=== PATIENT | female | born 1985 | race Caucasian/White ===

== ENCOUNTER 2017-03-26 07:55 | Outpatient (CLI) | payer OTHER ==
[~2017-03-26] VITALS: Ht 157.5 cm; Wt 71.9 kg
[~2017-03-26 07:55] MED LIST: PREN1TAB49 PO
[2017-03-26 08:07] VITALS: Ht 157.5 cm; Wt 71.9 kg
[2017-03-26 08:08] VITALS: BP 102/63; PULSE 70
[2017-03-26] MEDS ORDERED: TERBUTALINE 1 ML ONE (08:56)
[2017-03-26] MEDS: LACTATED RINGER'S 1,000 ML IV SCH ×2 (09:00→10:39)
[2017-03-26] MEDS ORDERED: LACTATED RINGER'S 500 ML IV ONE (09:00)
[2017-03-26] MEDS ORDERED: TERBUTALINE 1 MG/ML INJ SC ONE ×2 (09:00→09:30)
--- NOTE | 2017-03-26 09:14 | HP ---
Date/Time of Note Date/Time of Note DATE: 03/26/17 TIME: 09:10 OB - History Hx of Present Free Text/Dictation 31 year-old G3, P2 with history of 2 previous C-Sections Chief Complaint: Contractions Estimated Due Date: Apr 25, 2017 : 3 Para: 2 Care: Good Care Ultrasounds: Normal mid trimester US Obstetrical Complications: None Medical Complications: None (Came in with irregular but painful contractions since early this morning.Denies leakage of fluid or bleeding per vagina.Denies sexual intercourse.) Past Family/Social History * Past Medical, Surgical, Family and Obstetric Histories reviewed from chart. OB Admission Exam Vital Signs Vital Signs Vital Signs Date Time Temp Pulse Resp B/P Pulse Ox O2 Delivery O2 Flow Rate FiO2 03/26/17 08:08 97.8 70 102/63 JANEY KILGORE MD Mar 26, 2017 09:14
[2017-03-26 09:26] LABS: ADD UMIC NO; UR ASCORBIC ACID NEGATIVE (NEGATIVE); UR BILIRUBIN (Dip) NEGATIVE (NEGATIVE); UR BLOOD (Dip) NEGATIVE (NEGATIVE); UR CLARITY CLEAR (CLEAR); UR COLOR YELLOW (YELLOW); UR GLUCOSE (Dip) NEGATIVE (NEGATIVE); UR KETONES (Dip) NEGATIVE (NEGATIVE); UR LEUKOCYTE ESTERASE (Dip) NEGATIVE Leu/ul (NEGATIVE); UR NITRITE (Dip) NEGATIVE (NEGATIVE); UR SPECIFIC GRAVITY (Dip) 1.019 (1.003-1.030); UR TOTAL PROTEIN (Dip) NEGATIVE (NEGATIVE); UR UROBILINOGEN (Dip) NEGATIVE (NEGATIVE)
--- NOTE | 2017-03-26 14:18 | TRIAGE ---
OB Triage Datetime Report Generated by CPN: 03/26/2017 14:18 Datetime: 03/26/2017 12:17 Stage of : OB Triage Datetime: 03/26/2017 11:59 Labor Evaluation Frequency: 0 Monitor Mode: External Resting Tone [place]: Relaxed Heart Rate FHR Baseline Rate: 145 Monitor Mode: External US Variability: Moderate 6-25 bpm Accelerations: 10X10 Decelerations: None Category: Category I Pain Assessment Pain Scale: 0 Pain Presence: None/Denies Pain Type: N/A Pain Goal: 3 Pain Relief Measures: Comfort Measures Datetime: 03/26/2017 10:59 Labor Evaluation Frequency: X1 Monitor Mode: External Duration (sec)2399: 50 Quality: Mild Resting Tone [place]: Relaxed Heart Rate FHR Baseline Rate: 145 Monitor Mode: External US Variability: Moderate 6-25 bpm Accelerations: 10X10 Decelerations: None Category: Category I Pain Assessment Pain Scale: 4 Pain Presence: Intermittent Pain Type: Cramping Pain Location: Abdomen Pain Goal: 3 Pain Relief Measures: Comfort Measures Datetime: 03/26/2017 09:59 Labor Evaluation Frequency: 0 Monitor Mode: External Resting Tone [place]: Relaxed Heart Rate FHR Baseline Rate: 135 Monitor Mode: External US Variability: Moderate 6-25 bpm Accelerations: 10X10 Decelerations: None Category: Category I Pain Assessment Pain Scale: 0 Pain Presence: None/Denies Pain Type: N/A Pain Goal: 3 Pain Relief Measures: Comfort Measures Datetime: 03/26/2017 09:02 Stage of : OB Triage Datetime: 03/26/2017 08:58 Labor Evaluation Frequency: 5-6 Monitor Mode: External Duration (sec)2399: 50-60 Pattern: Normal: <= 5 Contractions in 10 Minutes Resting Tone [place]: Relaxed Heart Rate FHR Baseline Rate: 135 Monitor Mode: External US Variability: Moderate 6-25 bpm Accelerations: 10X10 Decelerations: None Category: Category I Pain Assessment Pain Scale: 5 Pain Presence: Intermittent Pain Type: Cramping Pain Location: Abdomen Pain Goal: 3 Pain Relief Measures: Comfort Measures Datetime: 03/26/2017 08:34 Stage of : OB Triage Datetime: 03/26/2017 08:04 Vaginal Exam Dilatation (cms): 0.0 Station: -2 Exam By: S ROSANNE Vaginal Bleeding: None Cervix, Consistency: Soft Cervix, Position: Posterior Presentation 'A': Cephalic Datetime: 03/26/2017 08:00 Stage of : OB Triage Assessment Type: Triage EGA: 35.5 Maternal Assessment Level of Consciousness: Fully Conscious DTR's/Clonus: DTRs 2+; No Clonus Headache: Denies Blurred Vision: No Respiratory Effort: Unlabored; Regular Rhythm; Equal Expansion Breath Sounds, Left: Clear and Equal Breath Sounds, Right: Clear and Equal Nausea/Vomiting: Denies RUQ Epigastric Pain: Denies Facial Edema: None Temperature Route: Axillary Fall Risk Assessment History of Falling: (0) No Secondary Diagnosis: (0) No Ambulatory Aid: (0) Bedrest/Nurse Assist IV Therapy: (0) No Gait: (0) Normal/Bedrest/Immobile Mental Status: (0) Oriented to Own Ability Fall Score: 0 Fall Risk Score Definition: No Risk: No action required Labor Evaluation Frequency: X1 Monitor Mode: External Duration (sec)2399: 30 Quality: Mild Resting Tone [place]: Relaxed Heart Rate FHR Baseline Rate: 145 Monitor Mode: External US Variability: Moderate 6-25 bpm Decelerations: None Category: Category II Pain Assessment Pain Scale: 6 Pain Presence: Intermittent Pain Type: Cramping; Contraction Pain Location: Abdomen Pain Goal: 3 Pain Relief Measures: Comfort Measures Datetime: 03/26/2017 07:59 Time of Arrival: 03/26/2017 07:50 Arrived By: Ambulatory Arrived From: Home Chief Complaint: C/O UC'S Q 5-10 MIN THAT STARTED AT APPROX 0450 THIS AM. DENIES BLEEDING OR LEAKI NG OF FLUID Movement: Present Contractions: Regular Contractions: 5-10 Rupture of Membranes: Denies Vaginal Bleeding: None Vaginal Discharge: Denies Recent Sexual Intercouse: Denies Abdominal Trauma: Not Applicable Patient Complaints: Contractions; Cramping Time Provider Notified: 03/26/2017 08:34 Provider Notified: JAME Initial Plan: MONITOR, VE, IV HYDRATION, TERBUTALINE
[2017-03-27] MEDS ORDERED: FER325 PO (04:39)
== END 2017-03-26 12:40 | disposition home or self-care (01) ==
LOC: L-D 07:55 → OBT 07:55
PROVIDERS: ATTEND Specialist
DX: O62.9 Abnormality of forces of labor, unspecified (principal); Z3A.35 35 weeks gestation of pregnancy
CPT/HCPCS: 36415; 81003; 96360; 96361; 96372; J3105; J7120; Z7500; G0463

== ENCOUNTER 2017-03-27 04:24 | Outpatient (CLI) | payer OTHER ==
[~2017-03-27] VITALS: Ht 157.5 cm; Wt 72.7 kg
[2017-03-27] MEDS ORDERED: FER325 PO (04:39)
[2017-03-27 04:40] VITALS: BP 111/61; PULSE 71; RESP 18; Ht 157.5 cm; Wt 72.7 kg
[2017-03-27] MEDS ORDERED: TERBUTALINE 1 MG/ML INJ SC STA (05:01)
[2017-03-27] MEDS ORDERED: LACTATED RINGER'S 1,000 ML IV SCH (05:30)
[2017-03-27] MEDS ORDERED: LACTATED RINGER'S 1,000 ML IV ONE (05:30)
--- NOTE | 2017-03-27 08:10 | HP ---
Date/Time of Note Date/Time of Note DATE: 03/27/17 TIME: 08:07 OB - History Hx of Present Chief Complaint: Contractions. Estimated Due Date: Apr 25, 2017 : 3 Para: 2 Care: Good Care Ultrasounds: Normal mid trimester US Obstetrical Complications: None Medical Complications: None Other Concerns: Preeevious X 2. Past Family/Social History * Past Medical, Surgical, Family and Obstetric Histories reviewed from chart. OB Admission Exam Vital Signs Vital Signs Vital Signs Date Time Temp Pulse Resp B/P Pulse Ox O2 Delivery O2 Flow Rate FiO2 03/27/17 04:40 97.9 71 18 111/61 Room Air JANEY KILGORE MD Mar 27, 2017 08:10
--- NOTE | 2017-03-27 08:10 | TRIAGE ---
OB Triage Datetime Report Generated by CPN: 03/27/2017 08:10 Datetime: 03/27/2017 08:00 Stage of : OB Triage Level of Consciousness: Fully Conscious Frequency: 2UC/HR Monitor Mode: External Duration (sec)2399: 80-110 Quality: Mild Pattern: Normal: <= 5 Contractions in 10 Minutes Resting Tone [place]: Relaxed FHR Baseline Rate: 135 Monitor Mode: External US Variability: Moderate 6-25 bpm Accelerations: 15X15 Decelerations: None Category: Category I Pain Scale: 3 Pain Presence: Intermittent Pain Type: Cramping Pain Location: Abdomen Pain Goal: 3 Pain Relief Measures: Comfort Measures Membrane Status: Intact Vaginal Bleeding: None Datetime: 03/27/2017 07:00 Stage of : OB Triage Frequency: Irregular Monitor Mode: External Duration (sec)2399: 50-180 Quality: Mild Pattern: Normal: <= 5 Contractions in 10 Minutes Resting Tone [place]: Relaxed FHR Baseline Rate: 135 Monitor Mode: External US Variability: Moderate 6-25 bpm Accelerations: 15X15 Decelerations: None Category: Category I Datetime: 03/27/2017 06:06 Membrane Status: Intact Datetime: 03/27/2017 06:00 Stage of : OB Triage Frequency: Irregular Monitor Mode: External Duration (sec)2399: 40-120 Quality: Mild Pattern: Normal: <= 5 Contractions in 10 Minutes Resting Tone [place]: Relaxed FHR Baseline Rate: 130 Monitor Mode: External US FHR Baseline Changes: No Baseline Change Variability: Moderate 6-25 bpm Accelerations: 15X15 Decelerations: None Category: Category I Datetime: 03/27/2017 05:00 Stage of : OB Triage Frequency: x2 Monitor Mode: External Duration (sec)2399: 50-90 Quality: Mild Pattern: Normal: <= 5 Contractions in 10 Minutes Resting Tone [place]: Relaxed FHR Baseline Rate: 130 Monitor Mode: External US Variability: Moderate 6-25 bpm Accelerations: 15X15 Decelerations: None Category: Category I Datetime: 03/27/2017 04:54 Stage of : OB Triage Datetime: 03/27/2017 04:34 Stage of : OB Triage Assessment Type: Triage Level of Consciousness: Fully Conscious DTR's/Clonus: DTRs 2+; No Clonus Headache: Denies Blurred Vision: No Respiratory Effort: Unlabored; Regular Rhythm; Equal Expansion Breath Sounds, Left: Clear and Equal Breath Sounds, Right: Clear and Equal Nausea/Vomiting: Denies RUQ Epigastric Pain: Denies Lower Extremities Edema: None Degree: None Upper Extremities Edema: None Degree: None Facial Edema: None Temperature Route: Oral History of Falling: (0) No Secondary Diagnosis: (0) No Ambulatory Aid: (0) Bedrest/Nurse Assist IV Therapy: (0) No Gait: (0) Normal/Bedrest/Immobile Mental Status: (0) Oriented to Own Ability Fall Score: 0 Fall Risk Score Definition: No Risk: No action required Pain Scale: 3 Pain Presence: Intermittent Pain Type: Cramping; Contraction Pain Location: Abdomen; Back Pain Relief Measures: Comfort Measures Datetime: 03/27/2017 04:32 Time of Arrival: 03/27/2017 04:24 EGA: 35.6 Arrived By: Wheelchair Arrived From: Home Chief Complaint: UCs [id number] Movement: Present Contractions: Irregular Time Contractions Began: 03/27/2017 02:00 Contractions: [id number] Rupture of Membranes: Denies Vaginal Bleeding: None Vaginal Discharge: Present Abdominal Trauma: Not Applicable Patient Complaints: Contractions; Cramping; Back Pain Time Provider Notified: 03/27/2017 04:54 Provider Notified: Initial Plan: LUIS FELIPE x2
[2017-03-27 09:32] LABS: ADD UMIC NO; UR ASCORBIC ACID NEGATIVE (NEGATIVE); UR BILIRUBIN (Dip) NEGATIVE (NEGATIVE); UR BLOOD (Dip) NEGATIVE (NEGATIVE); UR CLARITY CLEAR (CLEAR); UR COLOR YELLOW (YELLOW); UR GLUCOSE (Dip) NEGATIVE (NEGATIVE); UR KETONES (Dip) NEGATIVE (NEGATIVE); UR LEUKOCYTE ESTERASE (Dip) NEGATIVE Leu/ul (NEGATIVE); UR NITRITE (Dip) NEGATIVE (NEGATIVE); UR SPECIFIC GRAVITY (Dip) 1.016 (1.003-1.030); UR TOTAL PROTEIN (Dip) NEGATIVE (NEGATIVE); UR UROBILINOGEN (Dip) NEGATIVE (NEGATIVE)
== END 2017-03-27 08:15 | disposition home or self-care (01) ==
LOC: L-D 04:24 → OBT 04:24
PROVIDERS: ATTEND Specialist
DX: O62.9 Abnormality of forces of labor, unspecified (principal); O34.219 Maternal care for unspecified type scar from previous cesarean delivery; Z3A.35 35 weeks gestation of pregnancy
CPT/HCPCS: 36415; 81003; 87086; 96360; 96361; 96372; J3105; J7120; Z7500; G0463

== ENCOUNTER 2017-03-28 12:46 | Inpatient (IN) | payer OTHER ==
[~2017-03-28] VITALS: Ht 157.5 cm; Wt 72.7 kg
[~2017-03-28 12:46] MED LIST changes: +EPHEDrine SULFATE 50 MG/5 ML SYG ONE; +FER325 PO
--- NOTE | 2017-03-28 13:58 | TRIAGE ---
OB Triage Datetime Report Generated by CPN: 03/28/2017 13:57 Datetime: 03/28/2017 13:56 Assessment Type: Triage Level of Consciousness: Fully Conscious DTR's/Clonus: DTRs 2+; No Clonus Headache: Denies Blurred Vision: No Respiratory Effort: Unlabored; Regular Rhythm; Equal Expansion Breath Sounds, Left: Clear and Equal Breath Sounds, Right: Clear and Equal Nausea/Vomiting: Denies RUQ Epigastric Pain: Denies Lower Extremities Edema: None Degree: None Upper Extremities Edema: None Degree: None Facial Edema: None History of Falling: (0) No Secondary Diagnosis: (0) No Ambulatory Aid: (0) Bedrest/Nurse Assist IV Therapy: (0) No Gait: (0) Normal/Bedrest/Immobile Mental Status: (0) Oriented to Own Ability Fall Score: 0 Fall Risk Score Definition: No Risk: No action required Datetime: 03/28/2017 13:55 Time of Arrival: 03/28/2017 12:31 EGA: 36.0 Chief Complaint: PT SENT FROM CLINIC FOR NO FHT'S Movement: Present Contractions: Denies/Absent Rupture of Membranes: Denies Vaginal Bleeding: None Vaginal Discharge: Denies Recent Sexual Intercouse: Denies Abdominal Trauma: Not Applicable Patient Complaints: None Time Provider Notified: 03/28/2017 13:00 Provider Notified: JAME Initial Plan: EFM/PROMISE
[2017-03-28 14:36] VITALS: Ht 157.5 cm; Wt 72.7 kg
[2017-03-28 14:38] VITALS: BP 127/72; PULSE 68; RESP 18
--- NOTE | 2017-03-28 15:21 | RADRPT ---
PROCEDURE: US evaluation of amniotic fluid volume. CLINICAL INDICATION: No heart tones. TECHNIQUE: Multiple sonographic images of the gravid uterus were obtained utilizing alejandro-scale hernandez ging. Sagittal and transverse images were obtained. The images were reviewed on a PACS workstation . PROMISE was measured. COMPARISON: No prior studies are available for comparison. FINDINGS: There is a single intrauterine . There is no heart motion. This indicates demise. Position is cephalic. Placenta is posterior grade II with no abruption or previa. PROMISE is 8.7 cm. (Normal = 5-20 cm.) IMPRESSION: 1. PROMISE is 8.7 cm. 2. demise with no heart motion visualized. RPTAT: QQ .Keshawn Ballesteros MD, Date Time Electronically viewed and signed by .Keshawn Ballesteros MD, on 03/28/2017 15:21 .R/
[2017-03-28 15:29] LABS: BASOPHIL # 0.1 10^3/ul (0.0-0.1); BASOPHILS % 0.4 % (0.0-2.0); EOSINOPHILS # 0.1 10^3/ul (0.0-0.5); EOSINOPHILS % 0.5 % (0.0-7.0); HEMATOCRIT 35.1 % (37.0-47.0); HEMOGLOBIN 11.4 g/dl (12.0-16.0); LYMPHOCYTES # 2.3 10^3/ul (0.8-2.9); LYMPHOCYTES % 14.2 % (15.0-51.0); MEAN CORPUSCULAR HGB CONC 32.5 g/dl (32.0-37.0); MEAN CORPUSCULAR VOLUME 86.2 fl (82.0-101.0); MEAN PLATELET VOLUME 11.9 fl (7.4-10.4); MONOCYTE # 1.2 10^3/ul (0.3-0.9); MONOCYTES % 7.2 % (0.0-11.0); NEUTROPHIL # 12.2 10^3/ul (1.6-7.5); NEUTROPHILS % 76.6 % (39.0-77.0); PLATELET COUNT 272 10^3/UL (140-415); RED BLOOD COUNT 4.07 10^6/ul (4.20-5.40); RED CELL DISTRIBUTION WIDTH 14.3 % (11.5-14.5); WHITE BLOOD COUNT 15.9 10^3/ul (4.8-10.8)
[2017-03-28] MEDS ORDERED: OXYTOCIN 30 UNITS/LR 500 ML IV PRN (15:30)
[2017-03-28] MEDS ORDERED: CARBOPROST 250 MCG INJ IM PRN (15:30)
[2017-03-28] MEDS ORDERED: METHYLERGONOVINE 0.2 MG INJ IM PRN (15:30)
[2017-03-28] MEDS ORDERED: MISOPROSTOL 200 MCG TAB PR PRN (15:30)
[2017-03-28] MEDS ORDERED: OXYTOCIN 30 UNITS/LR 500 ML IV SCH ×2 (15:30→16:00)
[2017-03-28] MEDS ORDERED: CEFAZOLIN 2 GM/50 ML (PMX) 50 ML IV SCH (15:30)
[2017-03-28] MEDS: LACTATED RINGER'S 1,000 ML IV SCH ×4 (15:37→23:40)
[2017-03-28 15:42] LABS: INR 0.91; PROTIME 12.3 Sec (12.2-14.2)
[2017-03-28 15:43] LABS: PARTIAL THROMBOPLASTIN TIME 27.9 Sec (25.0-35.0)
[2017-03-28] MEDS ORDERED: ONDANSETRON 4 MG INJ IV STA (16:16)
[2017-03-28] MEDS ORDERED: CITRIC ACID/NA CITRATE 30 ML CUP PO ONE (16:30)
[2017-03-28] MEDS ORDERED: PHENYLephrine (100 MCG/ML) 5ML SYG ONE (17:28)
[2017-03-28] MEDS ORDERED: METOCLOPRAMIDE 10 MG INJ ONE (17:28)
[2017-03-28] MEDS ORDERED: morphine SULFATE/PF (10 MG/10 ML) INJ ONE (17:28)
[2017-03-28] MEDS ORDERED: OXYTOCIN 10 UNIT INJ ONE (17:28)
[2017-03-28] MEDS ORDERED: FENTAnyl 50 MCG/ML VIAL ONE (17:28)
[2017-03-28] MEDS ORDERED: MIDAZOLAM 1 MG/ML 2 ML INJ ONE (17:29)
[2017-03-28] MEDS ORDERED: morphine 2 MG INJ IV PRN (18:00)
[2017-03-28] MEDS ORDERED: LABETALOL HCL 20MG INJ IV PRN (18:00)
[2017-03-28] MEDS ORDERED: morphine 4 MG/ML VIAL IV PRN (18:00)
[2017-03-28] MEDS ORDERED: DIPHENHYDRAMINE 50 MG INJ IV PRN ×2 (18:00)
[2017-03-28] MEDS ORDERED: NALBUPHINE HCL (10 MG/1 ML) INJ IV PRN (18:00)
[2017-03-28] MEDS ORDERED: hydrALAzine 20 MG INJ IV PRN (18:00)
[2017-03-28] MEDS ORDERED: ONDANSETRON 4 MG INJ IV PRN ×2 (18:00)
[2017-03-28] MEDS ORDERED: TRIMETHOBENZAMIDE 100 MG/ML VIAL IM PRN ×2 (18:00)
[2017-03-28] MEDS ORDERED: OXYCODONE/ACETAMINOPHEN (5/325) TAB PO PRN ×2 (18:00)
[2017-03-28] MEDS ORDERED: MEPERIDINE 25 MG INJ IV PRN (18:00)
[2017-03-28] MEDS ORDERED: EPHEDrine SULFATE 50 MG/5 ML SYG IV PRN (18:00)
[2017-03-28] MEDS ORDERED: ZOLPIDEM 5 MG TAB PO PRN (18:00)
[2017-03-28] MEDS ORDERED: ALBUTEROL 0.083% (NEB) 2.5 MG/3 ML AMP HHN PRN (18:00)
[2017-03-28] MEDS ORDERED: FENTAnyl 50 MCG/ML VIAL IV PRN ×3 (18:00)
[2017-03-28] MEDS ORDERED: IPRATROPIUM (NEB) 0.5 MG/2.5 ML AMP HHN PRN (18:00)
[2017-03-28] MEDS ORDERED: NALOXONE (0.4 MG/ML) INJ IV PRN (18:00)
[2017-03-28] MEDS ORDERED: HYDROmorphONE (0.2 MG/ML) 10ML SYG IV PRN ×3 (18:00)
--- NOTE | 2017-03-28 19:28 | HP ---
Date/Time of Note Date/Time of Note DATE: 03/28/17 TIME: 19:07 OB - History Hx of Present Free Text/Dictation 31 y.o who had x2 previous section was sent from clinic not able to detect FHT Rad report revealed no FHT PROMISE 8.7 cephalic presentarion with post placenta Gr 1-II. repeat section was prepared as soon as possible which is requested by patient. Her OB is not available soon enough to meet the patient request, so I was requested to perform the procedure in place of Dr Sebastian Patient gave me the consent to perform the procedure. Chief Complaint: no FHT Estimated Due Date: Apr 25, 2017 : 3 Para: 2 Spontaneous : 0 Therapeutic : 0 Care: Good Care Ultrasounds: Normal mid trimester US Obstetrical Complications: None Medical Complications: None Past Family/Social History * Past Medical, Surgical, Family and Obstetric Histories reviewed from chart. Blood Type: O+ Rubella: immune RPR/VDRL: Negative GBS Status: Unknown HBsAG: Positive OB Admission Exam Vital Signs Vital Signs Vital Signs Date Time Temp Pulse Resp B/P Pulse Ox O2 Delivery O2 Flow Rate FiO2 03/28/17 14:38 98.5 68 18 127/72 Room Air Physical Exam HEENT: WNL Heart: Rhythm Normal Lungs: Clear, Equal Abdomen: WNL Extremities: Normal Reflexes: Normal Cervical Dilatation: other Effacement: Other Station: Other Membranes: Intact Amniotic Fluid: Other Last 72 hours Lab Results CBC & BMP 03/28/17 14:50 OB Assessment/Plan Other Assessment: IUP 36w demise X2 previous section Plan: Section FLORENCIO BARROS MD Mar 28, 2017 19:24
--- NOTE | 2017-03-28 19:54 | OPR ---
Operative Report Planned Procedure Free Text/Dictation demise at 36w with x2 previous section Procedure date Mar 28, 2017 Procedure(s) repeat low transverse section Performed by see signature line Assisting provider: IZABELA LOVELL MD Anesthesiologist: Willy Nelson M.D. Pre-procedure diagnosis IUP 36W , DEMISE X2 PREVIOUS SECTION Anesthesia Type: spinal Procedure Description Under satisfactory [spinal ] anesthesia, the patient was prepped and draped and placed in a supine position, tilted to the left. Pfannenstiel incision was made, carried through the subcutaneous tissue. Bleeders brought under control with electrocautery. Fascia incised to the length of the incision. Rectus muscles from the fascia, divided midline. Peritoneum exposed, entered through a transverse incision. Exploration of abdomen revealed gravid uterus. Transverse incision was made in the lower segment of the uterus. Amniotic sac ruptured. []light meconium stained amniotic fluid noted fetus was delivered from DEREJE The baby was handed to the nurse. It was noticed that there is tight true not one time near the placenta base. The placenta was delivered manually intact. Uterine cavity was cleaned with wet sponge and drainage established. Uterus closed in 2 layers using [#1.0 ch gut] in continuous fashion. Peritoneal cavity irrigated with warm saline. Sponge, needle and instrument count reported to be correct. Abdominal peritoneum closed with 0ch gut[] continuously. Rectus muscle approximated with []0ch gut. Fascia closed with []#1 vicryl in 2 segment . subcut was irrigated with water and this layer approximated with 00 plain gut , and skin closed with 000 monocryl in subcuticular manner.pressure dressing applied. Estimated blood loss [600 ] mL. Urine bag contained 200]mL of urine patient was sent to [facility] in stable condition. Post-Procedure Post-procedure diagnosis DELIVERED FETUS Findings: Baby [], Apgars [0] and [0], weight [5LB 3OZ ], position DEREJE[], [] presentation vertex]cord. true knot Estimated blood loss: other (600) Specimen(s): yes (see below) Specimen(s) description placenta Grafts/Implants: no Complication(s): no Pt Condition post procedure: stable Post-procedure comments true knot Physician Certification I, the undersigned physician, hereby certify that I have discussed the procedure described in this consent form with this patient (or the patient's legal treasury representative), including: * The risk and benefits of the procedure; * Any adverse reactions that may reasonably be expected to occur; * Any alternative efficacious methods of treatment which may be medically viable ; * The potential problems that may occur during recuperation; * Potential for blood transfusion and associated risks/benefits; and * Any research or economic interest I may have regarding this treatment. I further certify that the patient/legally responsible person was encouraged to ask question and that all questions were answered. FLORENCIO BARROS MD Mar 28, 2017 19:54
[2017-03-28] MEDS: KETOROLAC 30 MG INJ IV PRN (20:39)
[2017-03-28 23:18] VITALS: BP 114/53; PULSE 65; RESP 18
[2017-03-28 23:59] VITALS: BP 101/61; PULSE 65; RESP 18
[2017-03-29] VITALS (12 sets, daily range): BP systolic 97–117; BP diastolic 58–75; PULSE 62–77; RESP 16–20
[2017-03-29] MEDS ORDERED: METHYLERGONOVINE 0.2 MG INJ IM PRN (01:00)
[2017-03-29] MEDS ORDERED: LANOLIN 7 GM TUBE TOP PRN (01:00)
[2017-03-29] MEDS ORDERED: DIPHENHYDRAMINE 50 MG INJ IV PRN (01:00)
[2017-03-29] MEDS ORDERED: OXYTOCIN 30 UNITS/LR 500 ML IV PRN (01:00)
[2017-03-29] MEDS ORDERED: ONDANSETRON 4 MG INJ IV PRN (01:00)
[2017-03-29] MEDS ORDERED: CARBOPROST 250 MCG INJ IM PRN (01:00)
[2017-03-29] MEDS ORDERED: MISOPROSTOL 200 MCG TAB PR PRN (01:00)
[2017-03-29] MEDS: KETOROLAC 30 MG INJ IV PRN ×2 (03:40→12:48)
[2017-03-29 07:28] LABS: BASOPHIL # 0.1 10^3/ul (0.0-0.1); BASOPHILS % 0.3 % (0.0-2.0); EOSINOPHILS # 0.1 10^3/ul (0.0-0.5); EOSINOPHILS % 0.4 % (0.0-7.0); HEMATOCRIT 29.6 % (37.0-47.0); HEMOGLOBIN 9.5 g/dl (12.0-16.0); LYMPHOCYTES # 2.3 10^3/ul (0.8-2.9); LYMPHOCYTES % 14.5 % (15.0-51.0); MEAN CORPUSCULAR HEMOGLOBIN 27.7 pg (29.0-33.0); MEAN CORPUSCULAR HGB CONC 32.1 g/dl (32.0-37.0); MEAN CORPUSCULAR VOLUME 86.3 fl (82.0-101.0); MEAN PLATELET VOLUME 11.1 fl (7.4-10.4); MONOCYTE # 0.9 10^3/ul (0.3-0.9); MONOCYTES % 5.8 % (0.0-11.0); NEUTROPHIL # 12.4 10^3/ul (1.6-7.5); NEUTROPHILS % 78.1 % (39.0-77.0); PLATELET COUNT 228 10^3/UL (140-415); RED BLOOD COUNT 3.43 10^6/ul (4.20-5.40); RED CELL DISTRIBUTION WIDTH 14.5 % (11.5-14.5); WHITE BLOOD COUNT 15.9 10^3/ul (4.8-10.8)
--- NOTE | 2017-03-29 08:29 | PN ---
Date/Time of Note Date/Time of Note DATE: 03/29/17 TIME: 08:28 OB Subjective Subjective Subjective Tearful.Stable.Good output. OB Objective Objective Objective Afebrile.Lochia normal.Dressing dry. ELIEZER Alberto Encourage ambulation. HEENT: WNL Heart: Rhythm Normal Lungs: Clear Abdomen: WNL Extremities: Normal JANEY KILGORE MD Mar 29, 2017 08:29
[2017-03-29] MEDS: LACTATED RINGER'S 1,000 ML IV SCH (09:50)
[2017-03-29] MEDS: SENNA/DOCUSATE NA (8.6MG/50MG) TAB PO SCH ×2 (09:50→21:05)
[2017-03-29] MEDS: DIPHENHYDRAMINE 25 MG CAP PO PRN (15:36)
[2017-03-29] MEDS ORDERED: ZOLPIDEM 5 MG TAB PO PRN (17:30)
[2017-03-29] MEDS: IBUPROFEN 600 MG TAB PO SCH ×2 (17:43→23:46)
[2017-03-29] MEDS: OXYCODONE/ACETAMINOPHEN (5/325) TAB PO PRN (21:22)
[2017-03-30 01:00] VITALS: BP 104/61; PULSE 75; RESP 16
[2017-03-30] MEDS: DIPHENHYDRAMINE 25 MG CAP PO PRN (01:01)
[2017-03-30] MEDS: IBUPROFEN 600 MG TAB PO SCH ×3 (06:31→17:28)
[2017-03-30 06:38] VITALS: BP 107/65; PULSE 68; RESP 18
[2017-03-30] MEDS: OXYCODONE/ACETAMINOPHEN (5/325) TAB PO PRN ×3 (06:44→22:32)
[2017-03-30 07:28] VITALS: BP 109/73; PULSE 69
--- NOTE | 2017-03-30 07:49 | PN ---
Date/Time of Note Date/Time of Note DATE: 03/30/17 TIME: 07:47 OB Subjective Subjective Subjective Doing well,passing gases. OB Objective Objective Objective Afebrile.Lochia normal.Incision healing well. HEENT: WNL Heart: Rhythm Normal Lungs: Clear Abdomen: WNL JANEY KILGORE MD Mar 30, 2017 07:49
[2017-03-30 10:04] LABS: BASOPHIL # 0.1 10^3/ul (0.0-0.1); BASOPHILS % 0.4 % (0.0-2.0); EOSINOPHILS # 0.1 10^3/ul (0.0-0.5); EOSINOPHILS % 0.7 % (0.0-7.0); HEMATOCRIT 30.8 % (37.0-47.0); HEMOGLOBIN 9.6 g/dl (12.0-16.0); LYMPHOCYTES # 2.2 10^3/ul (0.8-2.9); LYMPHOCYTES % 13.4 % (15.0-51.0); MEAN CORPUSCULAR HEMOGLOBIN 27.3 pg (29.0-33.0); MEAN CORPUSCULAR HGB CONC 31.2 g/dl (32.0-37.0); MEAN CORPUSCULAR VOLUME 87.5 fl (82.0-101.0); MEAN PLATELET VOLUME 11.3 fl (7.4-10.4); MONOCYTES % 6.2 % (0.0-11.0); NEUTROPHIL # 12.9 10^3/ul (1.6-7.5); NEUTROPHILS % 78.6 % (39.0-77.0); PLATELET COUNT 262 10^3/UL (140-415); RED BLOOD COUNT 3.52 10^6/ul (4.20-5.40); WHITE BLOOD COUNT 16.4 10^3/ul (4.8-10.8)
[2017-03-30] MEDS: SENNA/DOCUSATE NA (8.6MG/50MG) TAB PO SCH ×2 (10:11→21:22)
[2017-03-30 12:50] VITALS: BP 125/79; PULSE 57
[2017-03-30 16:34] VITALS: BP 102/60; PULSE 74; RESP 16
[2017-03-30 21:20] VITALS: BP 104/68; PULSE 74; RESP 17
[2017-03-31] MEDS: IBUPROFEN 600 MG TAB PO SCH ×3 (00:07→12:17)
[2017-03-31 00:11] VITALS: BP 108/64; RESP 17
[2017-03-31 05:57] VITALS: BP 104/72; RESP 16
[2017-03-31] MEDS: OXYCODONE/ACETAMINOPHEN (5/325) TAB PO PRN (08:33)
[2017-03-31 08:40] VITALS: BP 118/78; PULSE 72; RESP 16
[2017-03-31] MEDS ORDERED: DIPHTH/TET/ACEL PERTUSS (ADULT) 0.5 ML VIAL IM* ONE (09:00)
[2017-03-31] MEDS: SENNA/DOCUSATE NA (8.6MG/50MG) TAB PO SCH (10:28)
--- NOTE | 2017-03-31 11:48 | PD.PPDC ---
TRAFFIC SUPERINTENDENT Discharge Instruction Diagnosis Final Diagnosis: s/p repeat section for demise Condition Patient Condition: Stable Diet Diet: Resume Regular Diet Activity/Restrictions Activity: May Shower Restrictions: No Exercising No Lifting Minimize Stair-climbing No Sexual Activity Nothing in the Vagina No [place] No Tampons, douche Wound/Drain Care Instructions Wound/Drain Care Instructions: Wash with soap and water Keep clean and dry Follow-up Follow-up with Physician: 2 Return to clinic for [facility] [employer] Instructions: Fever greater than 101 Chills Worsening abdominal pain Excessive Vaginal Bleeding More than 2 pads per hour Unable to tolerate diet OB Instructions: Breast Tenderness Depression Blurried Vision Headache Surgical Instructions: Incisional Drainage Incisional Redness FLORENCIO BARROS MD Mar 31, 2017 11:48
--- NOTE | 2017-03-31 11:54 | DS ---
Date/Time of Note Date/Time of Note DATE: 03/31/17 TIME: 11:50 Obstetrical Discharge Record Final Diagnosis Final Diagnosis: Term delivered Section Section: Repeat Demise Demise: Antepartum, at >20 weeks Complications Other ( demise) Augmentation: No Induction: No Rupture of Membranes: No Condition on Discharge Physical Assessment Last Vitals: vss afebrile Voiding: Yes Bowel Movement: No Breast: Soft, non-tender Fundus: Firm Abdomen and Incision: wound on rt side wet remove the steristrip and re taped under sterile condition with pressure dressing applied advise to keep two more days Calf Tenderness: No Patient Condition: Stable FLORENCIO BARROS MD Mar 31, 2017 11:54
== END 2017-03-31 13:06 | disposition home or self-care (01) | DRG 766 ==
LOC: L-D 12:46 → OBT 12:46 → L-D 12:50 → OBT 13:50 → L-D 17:23 → OBG 23:10
PROVIDERS: ADMIT Specialist; ATTEND Specialist
PROC: 10D00Z1 Extraction of Products of Conception, Low, Open Approach (ICD-10-PCS; principal; 2017-03-28 16:30)
DX: O60.14X0 Preterm labor third trimester with preterm delivery third trimester, not applicable or unspecified (principal); Z37.1 Single stillbirth; O34.211 Maternal care for low transverse scar from previous cesarean delivery; Z3A.36 36 weeks gestation of pregnancy
CPT/HCPCS: 76815; 85025; 85610; 85730; 86592; 86704; 86850; 86900; 86901; 87340; 88307; 90715; 94760; G0463; J0690; J1200; J1885; J2250; J2270; J2274; J2370; J2405; J2590; J2765; J3010; J7120